=== PATIENT | female | born 1990 | race Caucasian/White ===

== ENCOUNTER 2020-06-04 03:27 | Emergency (ER) | payer BC, OTHER ==
[~2020-06-04] VITALS: Ht 170.2 cm; Wt 95.3 kg
[2020-06-04 03:48] VITALS: BP 142/93
== END 2020-06-04 04:29 | disposition left against medical advice (07) ==
LOC: ER 03:27
DX: O26.892 Other specified pregnancy related conditions, second trimester (principal); M79.672 Pain in left foot; Z3A.20 20 weeks gestation of pregnancy; Z53.21 Procedure and treatment not carried out due to patient leaving prior to being seen by health care provider